=== PATIENT | male | born 1970 | race Caucasian/White ===

== ENCOUNTER 2016-12-11 15:38 | Emergency (ER) | payer MEDICAID ==
[~2016-12-11] VITALS: Ht 177.8 cm; Wt 81.6 kg
[2016-12-11 15:43] VITALS: BP 122/79
== END 2016-12-11 16:25 | disposition left against medical advice (07) ==
LOC: ER 15:42
DX: F41.9 Anxiety disorder, unspecified (principal); Z53.21 Procedure and treatment not carried out due to patient leaving prior to being seen by health care provider